=== PATIENT | female | born 1955 | race Caucasian/White ===

== ENCOUNTER 2016-08-24 11:25 | Outpatient (CLI) | payer OTHER ==
--- NOTE | 2016-08-24 12:13 | DIAGNOSTIC IMAGING REPORT ---
PROCEDURE: MG BILATERAL SCREENING W/CAD INDICATION: SCREENING TECHNIQUE: Bilateral CC and MLO digital views. COMPARISON: Compared to 06/30/2015, 06/20/2013, and 05/18/2012. FINDINGS: Computer-aided detection applied. Interval removal of bilateral breast implants. Breast parenchyma is moderately dense, but within normal limits, with a few dystrophic calcifications IMPRESSION: 1. Interval removal of bilateral breast implants. 2. Otherwise negative mammogram RESULT CODE: 1- Negative. A. A negative report should not delay biopsy if a dominant or clinically suspicious mass is present. 10-15% of cancers are not identified by x-ray. B. A negative report may reinforce clinical impression. C. Adenosis and dense breasts may obscure an underlying neoplasm. D. False positive reports average 6-10%. E.. A yearly screening mammogram is recommended. A reminder letter will be scheduled.
== END 2016-08-24 23:00 ==
LOC: MAM SRH 11:25
DX: Z12.31 Encounter for screening mammogram for malignant neoplasm of breast (principal)